=== PATIENT | male | born 1955 | race Caucasian/White ===

== ENCOUNTER 2016-11-10 23:51 | Observation (INO) | payer OTHER ==
[2016-11-11] MEDS ORDERED: SODIUM CHLORIDE 0.9% 1,000 ML IV STA (00:30)
[2016-11-11] MEDS ORDERED: ASPIRIN 81 MG CHEW PO STA (00:30)
[2016-11-11] MEDS ORDERED: MAG HYDROX/AL HYDROX/SIMETH 30 ML, HYOSCYAMINE ELIXIR 10 ML, CIMETIDINE HCL 300 MG, LID... PO STA ×4 (00:31)
--- NOTE | 2016-11-11 00:38 | ED ---
Chest Pain HPI - General Chief Complaint: Chest Pain Stated Complaint: Abdomin and chest pain Time Seen by Provider: 11/10/16 23:57 Source: patient, family Mode of arrival: wheelchair Limitations: no limitations - History of Present Illness Initial Comments: This patient is a 61-year-old man who presents with 2 complaints. He states that just before he was going to have his dinner he developed some epigastric area pain that he felt was indigestion. It was a burning feeling, mild to moderate intensity. The pain was constant and he could not identify any worsening or relieving factors. There was a little bit of nausea but no vomiting. Probably an hour or so after that he started noticing some left- sided chest pain that he was describing as a pressure though he he finds it hard to characterize. That pain is constant. He did not identify any worsening or relieving factors with that either. There are no associated symptoms. MD Complaint: chest pain -: hour(s) Onset: during rest Pain Location: substernal, left chest Pain Radiation: none Severity: moderate Quality: heaviness Consistency: constant Improves With: nothing Worsens With: nothing Anginal Symptoms: nausea Treatments Prior to Arrival: none - Related Data Home Medications Medication Instructions Recorded Confirmed ALPRAZolam [Xanax] 1 mg PO HS PRN 01/12/14 11/10/16 Lisinopril [Lisinopril] 20 mg PO DAILY 01/12/14 11/10/16 Allergies Allergy/AdvReac Type Severity Reaction Status Date / Time codeine Allergy Itching Verified 11/10/16 23:58 Review of Systems ROS Statement: Those systems with pertinent positive or pertinent negative responses have been documented in the HPI. ROS Other: All systems not noted in ROS Statement are negative. Constitutional: Denies: fever, chills, weakness Respiratory: Denies: cough, dyspnea Cardiovascular: Denies: chest pain, palpitations, edema Gastrointestinal: Reports: nausea. Denies: abdominal pain, vomiting, diarrhea, melena, hematochezia Genitourinary: Denies: dysuria, hematuria Musculoskeletal: Denies: back pain Skin: Denies: rash Neurological: Denies: headache, weakness, numbness Psychiatric: Reports: anxiety EKG Findings - EKG Comments: EKG Findings:: Possible old septal infarct. - EKG Results: EKG: interpreted by WILMER, sinus rhythm (With occasional PVCs. The rate is approximately 64 bpm), normal axis, normal QRS, normal ST/T Past Medical History Past Medical History: Hypertension Additional Past Medical History / Comment(s): sleep disorder History of Any Multi-Drug Resistant Organisms: None Reported Additional Past Surgical History / Comment(s): LEG Past Psychological History: Anxiety, Depression Smoking Status: Former smoker Past Alcohol Use History: Occasional Past Drug Use History: None Reported General Exam Limitations: no limitations General appearance: alert, in no apparent distress Head exam: Present: atraumatic, normocephalic Eye exam: Present: normal appearance. Absent: scleral icterus, conjunctival injection ENT exam: Present: normal oropharynx Neck exam: Present: normal inspection Respiratory exam: Present: normal lung sounds bilaterally. Absent: respiratory distress, wheezes, rales, rhonchi, stridor, chest wall tenderness, accessory muscle use, decreased breath sounds Cardiovascular Exam: Present: regular rate, normal rhythm, systolic murmur ( There is a grade 1/6 systolic ejection murmur). Absent: diastolic murmur, rubs , gallop GI/Abdominal exam: Present: soft, normal bowel sounds. Absent: distended, tenderness, guarding, rebound, mass, pulsatile mass, hernia Extremities exam: Present: normal inspection, normal capillary refill. Absent: pedal edema, calf tenderness Back exam: Present: normal inspection. Absent: CVA tenderness (R), CVA tenderness (L) Neurological exam: Present: alert Skin exam: Present: warm, dry, intact, normal color. Absent: rash, cyanosis, diaphoretic, erythema, petechiae, pallor, mottled Course Vital Signs 11/10/16 11/10/16 11/11/16 23:55 23:57 00:13 Temperature 98.5 F Pulse Rate 82 Pulse Rate [ 61 Bilingual Sales Representative ] Respiratory 18 22 Rate Blood Pressure 168/77 O2 Sat by Pulse 100 97 Oximetry 11/11/16 11/11/16 00:51 02:37 Temperature 97.8 F Pulse Rate 72 71 Pulse Rate [ Bilingual Sales Representative ] Respiratory 18 18 Rate Blood Pressure 179/78 162/81 O2 Sat by Pulse 99 99 Oximetry Disposition Clinical Impression: Chest pain Disposition: ADMITTED IP TO THIS HOSP Condition: Fair
[2016-11-11 00:47] LABS: Basophils # (A) 0.1 k/uL (0-0.2); Basophils % (A) 1 %; CH 31.4; CHCM 33.5; Eosinophils # (A) 0.2 k/uL (0-0.7); Eosinophils % (A) 2 %; HCT 50.6 % (39.0-53.0); HDW 2.27; HGB 16.9 gm/dL (13.0-17.5); Luc # (Auto) 0.34; Luc % (Auto) 3; Lymphocytes # (A) 2.2 k/uL (1.0-4.8); Lymphocytes % (A) 19 %; MCH 31.5 pg (25.0-35.0); MCHC 33.5 g/dL (31.0-37.0); Mean Platelet Volume 6.9; Monocytes # (A) 0.6 k/uL (0-1.0); Monocytes % (A) 5 %; Neutrophils # (A) 8.5 k/uL (1.3-7.7); Neutrophils % (A) 71 %; RBC 5.38 m/uL (4.30-5.90); RDW 12.9 % (11.5-15.5); WBC (Perox) 11.12
[2016-11-11] MEDS ORDERED: ONDANSETRON 4 MG/2 ML VIAL IVP STA (00:49)
[2016-11-11 00:55] LABS: ALT 66 U/L (21-72); AST 50 U/L (17-59); Alkaline Phosphatase 108 U/L (38-126); Amylase 82 U/L (30-110); Anion Gap 13 mmol/L; Blood Urea Nitrogen 17 mg/dL (9-20); Calcium 9.7 mg/dL (8.4-10.2); Carbon Dioxide 32 mmol/L (22-30); Chloride 100 mmol/L (98-107); Glucose 103 mg/dL (74-99); Magnesium 2.1 mg/dL (1.6-2.3); Non-African American GFR(MDRD) >60 (>60 ml/min/1.73 sqM); Potassium 4.3 mmol/L (3.5-5.1); Sodium 145 mmol/L (137-145); Total Bilirubin 0.6 mg/dL (0.2-1.3); Total Protein 7.2 g/dL (6.3-8.2)
[2016-11-11 01:01] LABS: Partial Thromboplastin Time 24.1 sec (22.0-30.0); Prothrombin Time 9.9 sec (9.0-12.0)
[2016-11-11 01:07] LABS: Creatine Kinase 164 U/L (55-170)
[2016-11-11 01:16] LABS: Appearance,Urine Clear (Clear); Bilirubin,Urine Negative (Negative); Glucose,Urine (UA) Negative (Negative); Ketones,Urine 2+ (Negative); Leukocyte Esterase,Urine Negative (Negative); Mucus,Urine Rare /hpf; Nitrite,Urine Negative (Negative); Particle Count 1348; Protein,Urine 3+ (Negative); RBC,Urine 1 /hpf (0-5); Specific Gravity,Urine 1.018 (1.001-1.035); UA Billing (MACRO vs. MICRO) MICRO; WBC,Urine <1 /hpf (0-5)
[2016-11-11 01:20] LABS: Creatine Kinase MB 2.3 ng/mL (0.0-2.4); Troponin I <0.012 ng/mL (0.000-0.034)
--- NOTE | 2016-11-11 02:07 | XR ---
Exam: XR CXR 1 VIEW History: Chest pain. Comparison: Chest radiographs dated 01/12/14. Technique: Frontal and lateral views. Findings: No focal consolidation or significant effusion. Cardiomediastinal silhouette is unremarkable when allowing for technique. Impression: No consolidation or significant effusion.
[2016-11-11] MEDS ORDERED: KETOROLAC 30 MG/ML 1 ML VIAL IVP STA (02:08)
[2016-11-11] MEDS ORDERED: METOPROLOL TARTRATE 25 MG TAB PO STA (02:17)
[2016-11-11] MEDS ORDERED: ENOXAPARIN 80 MG/0.8 ML SYRINGE SQ STA (02:52)
[2016-11-11] MEDS ORDERED: ALPRAZolam 0.5 MG TAB PO STA ×2 (02:52)
[2016-11-11] MEDS ORDERED: NITROGLYCERIN SL TABS 0.4 MG TAB SUBLINGUAL PRN (02:52)
[2016-11-11] MEDS ORDERED: SODIUM CHLORIDE 0.9% 1,000 ML IV SCH (03:00)
[2016-11-11 03:44] VITALS: BMI 23.4
[2016-11-11] MEDS ORDERED: ONDANSETRON 4 MG/2 ML VIAL IVP PRN (03:55)
[2016-11-11 07:13] LABS: Creatine Kinase 111 U/L (55-170)
[2016-11-11 07:18] VITALS: RESP 16
[2016-11-11 07:26] LABS: Creatine Kinase MB 1.3 ng/mL (0.0-2.4); Troponin I <0.012 ng/mL (0.000-0.034)
[2016-11-11] MEDS ORDERED: DOBUTamine DRIP for NUC MED 500 MG in DEXTROSE/WATER 1 250ML.BAG IV ONE (08:15)
--- NOTE | 2016-11-11 08:50 | CONS ---
DATE OF CONSULTATION: CHIEF COMPLAINT: Chest pain. Caroline is a 61-year-old gentleman with a history of hypertension on who presented to the hospital complaining of discomfort involving his epigastric area and chest. He describes it as a sharp pain that came on at rest without clear-cut relieving or exacerbating factors, unassociated with diaphoresis and unrelated to exertion. At the time of my evaluation, he is pain free and hemodynamically stable. He has had 2 sets of cardiac enzymes that are both within normal limits. Hemoglobin is normal. Creatinine is normal. EKG shows normal sinus rhythm with occasional PVCs and poor R wave progression. Coronary risk factors in the form of hypertension. There is no family history of premature coronary artery disease. There is no history of diabetes, dyslipidemia or current smoking. Past medical history is significant for hypertension. Medications at home include lisinopril, Xanax and vitamin C. ALLERGIC TO CODEINE: FAMILY HISTORY: Negative for premature coronary artery disease. SOCIAL HISTORY: Negative for current smoking, EtOH use or drug abuse. REVIEW OF SYSTEMS: HEENT: Unremarkable. CARDIAC: As described above. RESPIRATORY: Negative. GI: As described above. GENITOURINARY: Negative. MUSCULOSKELETAL: Significant so for arthritis. PSYCHOSOCIAL: Negative. DERMATOLOGY: Negative. CONSTITUTIONAL: Negative. ONCOLOGICAL: Negative. NEUROLOGICAL: Negative. The rest of the system review is not relevant. On exam, comfortable at rest. Vital signs are stable. There is no jugular venous distention. Carotid upstroke is normal. There is no bruit. Chest exam reveals good air entry bilaterally. Heart exam reveals first and second heart sounds. No gallop. No murmur, no rub. Abdomen is soft, nontender. Exam of the extremities did not reveal any edema. Peripheral pulses are felt. 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 ASSESSMENT: Chest pain, atypical, and probably noncardiac. PLAN: I will perform a dobutamine echo on him. If this is negative, he can be discharged home from cardiac standpoint and further work-up pursued as outpatient. Thank you for allowing me to participate in the care of this pleasant gentleman.
[2016-11-11] MEDS ORDERED: LISINOPRIL 20 MG TAB PO SCH (09:00)
[2016-11-11] MEDS ORDERED: ATROPINE SULFATE 0.1 MG/ML 10ML SYRINGE ONE (11:37)
[2016-11-11] MEDS ORDERED: METOPROLOL TARTRATE 5 MG/5 ML VIAL IVP ONE (11:37)
--- NOTE | 2016-11-11 11:59 | ECHOS ---
DATE OF SERVICE: 11/11/2016 AGE: 61Y SEX: M HT: 73" WT: 177 lbs. Protocol Arsenio: Others: Dobutamine Stress Echo Stage: Dur. of Exercise: *Heart Rate Blood Pressure *Rest: 57 Rest: 107/63 * *Max. Achieved: 139 Maximum BP: 134/66 85% PMHR: 136 100% PMHR: 160 *METS: INDICATION OF THE STUDY: Chest discomfort. MEDICATIONS: STRESS DATA: Pretesting physical examination showed heart rate of 57, pressure is107/63 mmHg. Baseline EKG showed sinus rhythm. Dobutamine infusion at a dose of 10 mcg/kg per minute was initiated. We gave the patient 1 mg of atropine to enhance the heart rate. With dobutamine and atropine the patient achieved the max heart rate of 139, which is about 87% of maximum predicted heart rate. Maximum blood pressure was 134/66 mmHg. Clinically, the patient did not have any symptoms of chest pain or discomfort. The EKG did not show any significant ST or T wave abnormalities consistent with ischemia but the patient developed multiple episodes of PVCs and ventricular bigeminy. ECHOCARDIOGRAM IMAGES: On echocardiogram images from parasternal long axis view, parasternal short axis view, apical 4 chambers view as well as apical 2 chambers view were obtained as the baseline images, at the peak of the heart rate, as well as on recovery. The echocardiogram images showed good augmentation in the left ventricular systolic function without any obvious wall motion abnormalities consistent with ischemia. CONCLUSION: 1. No evidence of ischemia by EKG in response to dobutamine. 2. Normal echocardiogram in response to dobutamine.
[2016-11-11 12:07] VITALS: BP 104/65; PULSE 76; TEMP 97.7
[2016-11-11 13:11] LABS: Creatine Kinase 88 U/L (55-170)
[2016-11-11 13:25] LABS: Troponin I <0.012 ng/mL (0.000-0.034)
[2016-11-12] MEDS ORDERED: ASPIRIN 325 MG TAB PO SCH (09:00)
--- NOTE | 2016-11-12 10:01 | ECHOF ---
Referral Reason:chest pain MEASUREMENTS -------- HEIGHT: 182.9 cm WEIGHT: 80.3 kg BP: RVIDd: 3.1 cm (< 3.3) IVSd: 1.3 cm (0.6 - 1.1) LVIDd: 4.3 cm (3.9 - 5.3) LVPWd: 1.3 cm (0.6 - 1.1) IVSs: 1.4 cm LVIDs: 2.9 cm LVPWs: 1.7 cm LA Diam: 3.2 cm (2.7 - 3.8) LAESV Index (A-L): 24.84 ml/m Ao Diam: 3.0 cm (2.0 - 3.7) AV Cusp: 1.6 cm (1.5 - 2.6) LA Diam: 3.5 cm (2.7 - 3.8) MV EXCURSION: 21.562 mm (> 18.000) MV EF SLOPE: 122 mm/s (70 - 150) EPSS: 0.3 cm MV E Jason: 0.70 m/s MV DecT: 229 ms MV A Jason: 1.18 m/s MV E/A Ratio: 0.59 RAP: 5.00 mmHg RVSP: 23.35 mmHg FINDINGS -------- Sinus rhythm. This was a technically adequate study. There is moderate concentric left ventricular hypertrophy. Overall left ventricular systolic function is normal with, an EF between 55 - 60 %. The right ventricle is normal in size. Normal LA size by volume 22+/-6 ml/m2. The right atrial size is normal. There is mild aortic valve sclerosis. There is no evidence of aortic regurgitation. Mild mitral annular calcification present. Mild mitral regurgitation is present. Mild tricuspid regurgitation present. There is no evidence of pulmonary hypertension. The right ventricular systolic pressure, as measured by Doppler, is 23.35mmHg. Trace/mild (physiologic) pulmonic regurgitation. The aortic root size is normal. There is no pericardial effusion. CONCLUSIONS -------- 1. There is moderate concentric left ventricular hypertrophy. 2. The aortic root size is normal. 3. There is no pericardial effusion. 4. Overall left ventricular systolic function is normal with, an EF between 55 - 60 %. 5. There is mild aortic valve sclerosis. 6. Mild mitral annular calcification present. 7. Mild mitral regurgitation is present. 8. Mild tricuspid regurgitation present. 9. There is no evidence of pulmonary hypertension. 10. The right ventricular systolic pressure, as measured by Doppler, is 23.35mmHg. 11. Trace/mild (physiologic) pulmonic regurgitation. DATE NIGHT SITTER: Adelina Thorne RDCS
--- NOTE | 2016-11-13 08:34 | P.HPIM ---
History of Present Illness H&P Date: 11/11/16 Chief Complaint: Chest pain, abdominal pain HISTORY AND PHYSICAL AND DISCHARGE SUMMARY: This is a 61-year-old male patient of Dr. Restrepo for the past medical history of TIA in 2014, hypertension. Patient states that he was doing yard work yesterday but did not feel he was doing strenuous work and then in the evening when he went to bed his noticed that he Going to the bathroom and getting up out of bed. Patient was complaining of some left-sided chest pain and abdominal pain generalized to the medical area. He finally told his that he just didn't feel well and bring him into the hospital. He did have some nausea without vomiting. He denies any sweats, shortness of breath. He did say to his that his left arm felt funny. Patient also states that after he sleeps all night he does not feel rested but he has never had a sleep study done. Patient came into [facility] emergency center. Chest x-ray showed no consolidation or effusion. EKG was a sinus rhythm with occasional PVCs and poor R wave progression. His troponins were negative 3. He was placed on the observation unit and seen by cardiology and underwent a stress test which was negative and patient was discharged home. Regarding the abdominal pain, patient was instructed to take omeprazole daily for 6 weeks and follow-up with his primary care physician. Review of Systems All systems: negative Constitutional: Denies chills, Denies fever Eyes: denies blurred vision, denies pain Ears, nose, mouth and throat: Denies headache, Denies sore throat Cardiovascular: Reports chest pain, Denies decreased exercise tolerance, Denies dyspnea on exertion, Denies leg edema, Denies lightheadedness, Denies shortness of breath, Denies syncope Respiratory: Denies cough, Denies cough with sputum, Denies dyspnea, Denies excessive sputum, Denies hemoptysis, Denies home oxygen Gastrointestinal: Reports abdominal pain, Reports nausea, Denies diarrhea, Denies vomiting Musculoskeletal: Denies myalgias Integumentary: Denies pruritus, Denies rash Neurological: Denies numbness, Denies weakness Psychiatric: Denies anxiety, Denies depression Endocrine: Denies fatigue, Denies weight change Past Medical History Past Medical History: Hypertension Additional Past Medical History / Comment(s): TIA in 2014 History of Any Multi-Drug Resistant Organisms: None Reported Additional Past Surgical History / Comment(s): LEG an open FX in 1991 Past Anesthesia/Blood Transfusion Reactions: No Reported Reaction Past Psychological History: Anxiety Smoking Status: Former smoker Past Alcohol Use History: Occasional Additional Past Alcohol Use History / Comment(s): Patient was a smoker one and a half packs per day for 40 years and quit in June 2016. He denies any medical marijuana, marijuana, street drug use. He drinks alcohol rarely in the form of beer. He works at [employer] is currently working 7 days per week. Past Drug Use History: None Reported - Past Family History Father Family Medical History: No Reported History Additional Family Medical History / Comment(s): Father in his 70s with history of alcohol abuse. Patient did not have contact with him. Mother Family Medical History: No Reported History Additional Family Medical History / Comment(s): Mother at age 35 from suicide. Brother(s) Additional Family Medical History / Comment(s): Patient has one brother 65 years of age with COPD. Patient has 2 half brothers that have but does not know their medical history. Sister(s) Additional Family Medical History / Comment(s): Patient has 2 half-sisters and one from unknown reason and one is alive with no major medical problems. Medications and Allergies Home Medications Medication Instructions Recorded Confirmed Type ALPRAZolam [Xanax] 2 mg PO TID PRN 01/12/14 11/11/16 History Lisinopril 20 mg PO DAILY 01/12/14 11/11/16 History Ascorbic Acid [Vitamin C] 1,000 mg PO DAILY 11/11/16 11/11/16 History Multivit-Min/FA/Lycopen/Lutein 1 tab PO DAILY 11/11/16 11/11/16 History [Centrum Silver Men Tablet] Allergies Allergy/AdvReac Type Severity Reaction Status Date / Time codeine AdvReac Itching Verified 11/11/16 08:27 Physical Exam Vitals: Vital Signs Temp Pulse Pulse Pulse Resp BP BP 11/11/16 12:00 97.7 F 76 16 104/65 11/11/16 07:41 11/11/16 07:17 97.8 F 53 L 16 115/57 11/11/16 04:00 18 11/11/16 03:39 97.3 F L 62 18 143/64 11/11/16 03:11 98.1 F 68 18 156/82 11/11/16 02:37 97.8 F 71 18 162/81 11/11/16 00:51 72 18 179/78 11/11/16 00:13 61 22 11/10/16 23:57 11/10/16 23:55 98.5 F 82 18 168/77 Pulse Ox 11/11/16 12:00 95 11/11/16 07:41 96 11/11/16 07:17 95 11/11/16 04:00 11/11/16 03:39 98 11/11/16 03:11 98 11/11/16 02:37 99 11/11/16 00:51 99 11/11/16 00:13 11/10/16 23:57 97 11/10/16 23:55 100 Intake and Output 11/10/16 11/11/16 11/11/16 22:59 06:59 14:59 Other: Voiding Method Toilet # Voids 1 Weight 80.7 kg Gen: This is a 61-year-old male. He is sitting up in bed and appears to be in no acute distress. HEENT: Head is atraumatic, normocephalic. Pupils equal, round. Sclerae is anicteric. NECK: Supple. No JVD. No lymphadenopathy. No thyromegaly. LUNGS: Clear to auscultation. No wheezes or rhonchi. No intercostal retractions. HEART: Regular rate and rhythm. No murmur. ABDOMEN: Soft. Bowel sounds are present. No masses. No tenderness. EXTREMITIES: No pedal edema. No calf tenderness. NEUROLOGICAL: Patient is awake, alert and oriented x3. Cranial nerves 2 through 12 are grossly intact. Results CBC & Chem 7: 11/11/16 00:11 11/11/16 00:11 Labs: Abnormal Lab Results - Last 24 Hours (Table) 11/11/16 11/11/16 11/11/16 Range/Units 00:11 00:11 01:00 WBC 12.0 H (3.8-10.6) k/uL Neutrophils # 8.5 H (1.3-7.7) k/uL Carbon Dioxide 32 H (22-30) mmol/L Glucose 103 H (74-99) mg/dL Urine Protein 3+ H (Negative) Urine Ketones 2+ H (Negative) Urine Mucus Rare H (None) /hpf Thrombosis Risk Factor Assmnt - DVT/VTE Prophylaxis DVT/VTE Prophylaxis: Mechanical Prophylaxis ordered - Choose All That Apply Each Factor Represents 1 point: Age 41-60 years Thrombosis Risk Factor Assessment Total Risk Factor Score: 1 Thrombosis Risk Factor Assessment Level: Low Risk Assessment and Plan Plan: 1. Chest pain/abdominal pain with negative stress test possibly related to GERD. Patient instructed to start omeprazole for 6 weeks. 2. Hypertension. Continue lisinopril 20 mg daily. 3. Generalized anxiety disorder. Patient is currently on Xanax 2 mg 3 times daily. 4. Possible sleep disorder. Patient will need outpatient sleep study. Patient placed on the observation unit. Discharge plan: Home Impression and plan of care have been directed as dictated by the signing physician. Delicia Fernandez nurse practitioner acting as scribe for signing physician.
== END 2016-11-11 13:30 | disposition home or self-care (01) ==
LOC: EC 23:51 → 3SUR 11-11 02:50
PROVIDERS: ADMIT Internal Medicine Geriatric Medicine; ATTEND Internal Medicine Geriatric Medicine
DX: R07.89 Other chest pain (principal); K30 Functional dyspepsia; R11.0 Nausea; Z79.899 Other long term (current) drug therapy; Z88.5 Allergy status to narcotic agent; Z87.891 Personal history of nicotine dependence; F41.1 Generalized anxiety disorder; F32.9 Major depressive disorder, single episode, unspecified; I10 Essential (primary) hypertension; I49.3 Ventricular premature depolarization; Z86.73 Personal history of transient ischemic attack (TIA), and cerebral infarction without residual deficits; Z82.5 Family history of asthma and other chronic lower respiratory diseases
CPT/HCPCS: 96361; 96372; 96374; 96375; 99285; 36415; 94760; 93005; 93017; 93306; 93350; 85379; 80053; 82150; 82550; 82553; 83690; 83735; 84484; 85025; 85610; 85730; 81001; 71020; G0378; J1250; J2405; J0461; J1650; J1885

== ENCOUNTER → 2023-10-28 | Outpatient (CLI) | payer MEDICARE ==
--- NOTE | 2023-10-28 16:45 | US ---
EXAMINATION TYPE: US liver DATE OF EXAM: 10/28/2023 COMPARISON: NONE CLINICAL INDICATION: Male, 68 years old with history of K76.0 FATTY (CHANGE OF) LIVER, NOT ELSEWHERE CLASS; TECHNIQUE: Multiple sonographic images of the right upper quadrant are obtained. FINDINGS: EXAM MEASUREMENTS: Liver Length: 15.1 cm Gallbladder Wall: 0.23 cm CBD: 0.23 cm Right Kidney: 11.3 x 4.5 x 4.0 cm BUSINESS OWNER/ENGINEER NOTES: Pancreas: Tail obscured by overlying bowel gas Liver: wnl . No increased echogenicity. No focal lesion. Gallbladder: Multiple shadowing, mobile echogenic foci. No wall thickening or stranding fluid. Evidence for sonographic Perez's sign: No CBD: wnl Right Kidney: wnl IMPRESSION: 1. Cholelithiasis without ultrasound evidence for acute cholecystitis. 2. Unremarkable sonographic appearance of the liver without focal lesion.
== END | disposition home or self-care (01) ==
LOC: RADUSWWP 10:17
PROVIDERS: ATTEND Internal Medicine
DX: K80.20 Calculus of gallbladder without cholecystitis without obstruction (principal); K76.0 Fatty (change of) liver, not elsewhere classified
CPT/HCPCS: 76705